=== PATIENT | male | born 1995 | race Caucasian/White ===

== ENCOUNTER 2019-02-07 19:38 | Emergency (ER) | payer SELFPAY ==
[2019-02-07] MEDS ORDERED: Sodium Chloride 0.9% 10 ML Syringe FLUSH PRN (19:44)
[2019-02-07] MEDS ORDERED: Lidocaine 1% 10 ML MDV INJECT ONE (19:46)
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
[2019-02-07] MEDS ORDERED: Iopamidol 755 Mg/ML 200 ML Bottle IV ONE (20:06)
--- NOTE | 2019-02-08 08:07 | CT ---
CT chest Technique: Multiple axial sections through the chest were obtained. Intravenous contrast was utilized. Comparison: No prior chest imaging is available. Findings: Mediastinum and hilar regions show no adenopathy or mass. No pericardial fluid is seen. Enhancing lesion is noted posteriorly within the right lobe of the liver measuring about 5.7 cm in greatest dimension. Characteristics of this finding suggest the possibility of FNH. No pulmonary contusions are seen. No pleural effusions are noted. Minimal right basilar atelectasis is present. Bone window settings were reviewed which show no discrete rib fracture. Two old left-sided rib fractures noted in the proximal fifth and sixth left ribs. These appear healed. Thoracic spine shows no focal compression deformities. Impression: 1. 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 Nonemergent MRI could be considered to hopefully confirm. 2. Two old healed left-sided rib fractures. 3. Nothing acute is otherwise seen on CT study of the chest. Diagnostic code #3 I agree with preliminary report from [facility], finalized on 02/07/19, 9:45 PM Central Time
== END 2019-02-07 22:06 | disposition home or self-care (01) ==
LOC: JD.ED 19:38
DX: S01.311A Laceration without foreign body of right ear, initial encounter (principal); K76.9 Liver disease, unspecified; F17.210 Nicotine dependence, cigarettes, uncomplicated; V89.2XXA Person injured in unspecified motor-vehicle accident, traffic, initial encounter
CPT/HCPCS: 12011; 36415; 71260; 80053; 83690; 85025; 99285; G0480; J2001; Q9967; 12015; 99283